=== PATIENT | female | born 1955 | race Caucasian/White ===

== ENCOUNTER → 2016-02-22 | Outpatient (CLI) | payer BC | LOC: GMAL 17:33 | PROVIDERS: ATTEND Family Medicine | DX: L03.311 Cellulitis of abdominal wall (principal) ==

== ENCOUNTER 2018-04-01 17:18 | Emergency (ER) | payer SELFPAY ==
[2018-04-01] MEDS ORDERED: IPRATROPIUM/ALBUTEROL 3 ML VIAL NEB ONE (17:36)
[2018-04-01] MEDS ORDERED: IBUPROFEN 200 MG TAB PO ONE (17:37)
[2018-04-01 17:42] VITALS: TEMP 99.6
[2018-04-01] MEDS ORDERED: OSELTAMIVIR 75 MG CAP PO ONE (18:07)
[2018-04-01] MEDS ORDERED: predniSONE 20 MG TAB PO ONE (18:08)
--- NOTE | 2018-04-01 18:23 | RAD ---
EXAM DESCRIPTION: Chest,2 Views CLINICAL HISTORY:63 years Female, cough, fever Comparison: None FINDINGS: No focal lung consolidation. No pleural effusion. No pneumothorax. Cardiac and mediastinal silhouette is unremarkable. No acute osseous abnormality. Soft tissues are unremarkable. IMPRESSION: No acute findings. No focal lung consolidation. Electronically signed by: Rick Vo MD 04/01/2018 6:19 PM [facility]
[2018-04-01] MEDS ORDERED: AMOXICILLIN & POT CLAVULANATE 875 MG TAB PO ONE (18:28)
--- NOTE | 2018-04-01 18:31 | ED.PDOC ---
History of Present Illness - General Chief Complaint: Respiratory Problem Stated Complaint: Pt complains of headache, productive cough, SOB Time Seen by Provider: 04/01/18 17:33 Source: patient Exam Limitations: no limitations - History of Present Illness Initial Comments: the patient is a 63-year-old female presenting to emergency room secondary to a weeks worth of symptoms of cough and some mild shortness of breath. She does smoke. She does have wheezing and obviously has since the period she presents with her with similar symptoms of a shorter duratio n. She did have some diarrhea earlier in the week but that has resolved. No real abdominal pain. No chest pain. She does have a cough, does have a sore throat as well as a mild headache and some generalized body aches as well. Timing/Duration: 1 week Severity: moderate Improving Factors: nothing Worsening Factors: nothing Associated Symptoms: cough, fever/chills, headaches, loss of appetite, malaise Allergies/Adverse Reactions: Allergies Acetaminophen Allergy (Verified 03/06/14 11:24) Clarithromycin [From Biaxin] Allergy (Verified 03/06/14 11:24) Dextromethorphan [From Night Time Cold Formula] Allergy (Verified 03/06/14 11:24) Doxylamine [From Night Time Cold Formula] Allergy (Verified 03/06/14 11:24) Ephedrine [From Night Time Cold Formula] Allergy (Verified 03/06/14 11:24) Fexofenadine [From Rosaura-D] Allergy (Verified 03/06/14 11:24) Gemfibrozil Allergy (Verified 03/06/14 11:24) Methotrexate Allergy (Verified 03/06/14 11:24) Pseudoephedrine [From Rosaura-D] Allergy (Verified 03/06/14 11:24) Rosuvastatin [From Crestor] Allergy (Verified 03/06/14 11:24) Home Medications: Ambulatory Orders Glipizide 5 mg PO DAILY 03/06/14 Lantus 0 units SC DAILY 03/06/14 Plaqenil 200 mg .ROUTE DAILY 03/06/14 Pregabalin [Lyrica] 75 mg PO BID 03/06/14 Sitagliptin Phosphate [Januvia] 100 mg PO DAILY 03/06/14 Amoxicillin & Pot Clavulanate [Augmentin Tab] 875 mg PO BID #10 tab 04/01/18 Oseltamivir Capsule [Tamiflu] 75 mg PO BID 5 Days #10 capsule 04/01/18 predniSONE [Prednisone] 20 mg PO DAILY #3 tab 04/01/18 Review of Systems - Review of Systems Constitutional: States: chills, diaphoresis, fever, malaise EENTM: States: nose congestion, throat pain Respiratory: States: cough Cardiology: States: no symptoms reported Gastrointestinal/Abdominal: States: no symptoms reported, diarrhea - has resolved at this point Genitourinary: States: no symptoms reported Musculoskeletal: States: see HPI - generalized body aches Skin: States: no symptoms reported Neurological: States: headache Endocrine: States: no symptoms reported All other Systems: No Change from Baseline Past Medical History (General) - Patient Medical History Hx Seizures: No Hx Stroke: No Hx Dementia: No Hx Asthma: No Hx of COPD: No Hx Cardiac Disorders: No Hx Congestive Heart Failure: No Hx Pacemaker: No Hx Hypertension: No Hx Thyroid Disease: No Hx Diabetes: Yes Hx Gastroesophageal Reflux: No Hx Renal Disease: No Hx of HIV: No Hx MRSA: No Surgical History: other - Vaccination History Hx Tetanus, Diphtheria Vaccination: No Hx Influenza Vaccination: No Hx Pneumococcal Vaccination: No Immunizations Up to Date: - Unknown - Social History Hx Tobacco Use: Yes Cigarettes Packs Per Day: 1 Hx Alcohol Use: No Hx Substance Use: No Hx Substance Use Treatment: No Hx Depression: No - Female History Patient is a Female of Child Bearing Age (10 -59 yrs old): No Family Medical History - Family History Mother Family History: Unknown Living Status: Unknown Physical Exam - Physical Exam General Appearance: Alert, No apparent distress, Unkempt Eye Exam: bilateral normal Ears, Nose, Throat: hearing grossly normal, nasal congestion, pharyngeal erythema Neck: full range of motion, supple, normal inspection Respiratory: no respiratory distress, no accessory muscle use, wheezing Cardiovascular/Chest: normal peripheral pulses, no edema, tachycardia Peripheral Pulses: radial,right: 2+, radial,left: 2+ Gastrointestinal/Abdominal: non tender, soft Rectal Exam: deferred Back Exam: no CVA tenderness, no vertebral tenderness Extremity: normal range of motion, non-tender, normal inspection, no pedal edema, normal capillary refill 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 She is not hypoxic. She received a breathing treatment, dose of prednisone, a dose of Tamiflu and a dose of Augmentin. Chest x-ray shows no focal infiltrate. The patient is going to be written for the treatment course of Tamiflu as well as 5 days of Augmentin and 3 days of oral prednisone. She needs to not smoke during this time. Motrin can be used for symptom control as well. Keep well-hydrated. ER warnings were given. keep follow-up with primary care doctor late this week or early next week. Departure - Departure Clinical Impression: Influenza, Acute exacerbation of COPD with asthma Disposition: Discharge to Home or Self Care Condition: Fair Departure Forms: ED Discharge - Pt. Copy, Patient Portal Self Enrollment Instructions: Flu, Adult (DC), Exacerbation of COPD Diet: regular diet Activity: increase activity as tolerated Referrals: Olivier Solorzano III, MD [Primary Care Provider] - 1-5 Days Prescriptions: Amoxicillin & Pot Clavulanate [Augmentin Tab] 875 mg PO BID #10 tab Oseltamivir Capsule [Tamiflu] 75 mg PO BID 5 Days #10 capsule predniSONE [Prednisone] 20 mg PO DAILY #3 tab Home Medications: Ambulatory Orders Glipizide 5 mg PO DAILY 03/06/14 Lantus 0 units SC DAILY 03/06/14 Plaqenil 200 mg .ROUTE DAILY 03/06/14 Pregabalin [Lyrica] 75 mg PO BID 03/06/14 Sitagliptin Phosphate [Januvia] 100 mg PO DAILY 03/06/14 Amoxicillin & Pot Clavulanate [Augmentin Tab] 875 mg PO BID #10 tab 04/01/18 Oseltamivir Capsule [Tamiflu] 75 mg PO BID 5 Days #10 capsule 04/01/18 predniSONE [Prednisone] 20 mg PO DAILY #3 tab 04/01/18 Additional Instructions: the patient is a 63-year-old female presenting with what appears to be a COPD exacerbation complicated by influenza. She is not hypoxic. She received a breathing treatment, dose of prednisone, a dose of Tamiflu and a dose of Augmentin. Chest x-ray shows no focal infiltrate. The patient is going to be written for the treatment course of Tamiflu as well as 5 days of Augmentin and 3 days of oral prednisone. She needs to not smoke during this time. Motrin can be used for symptom control as well. Keep well-hydrated. ER warnings were given. keep follow-up with primary care doctor late this week or early next week.
[2018-04-01 18:45] VITALS: O2SAT 96
[2018-04-01 19:03] VITALS: BP 106/80
== END 2018-04-01 19:04 | disposition home or self-care (01) ==
LOC: ER 17:18
DX: J11.1 Influenza due to unidentified influenza virus with other respiratory manifestations (principal); J44.1 Chronic obstructive pulmonary disease with (acute) exacerbation; E11.9 Type 2 diabetes mellitus without complications; F17.210 Nicotine dependence, cigarettes, uncomplicated; Z79.4 Long term (current) use of insulin; Z79.899 Other long term (current) drug therapy; Z88.8 Allergy status to other drugs, medicaments and biological substances; Z88.1 Allergy status to other antibiotic agents; Z88.6 Allergy status to analgesic agent
CPT/HCPCS: 71046; 87502; 94640; J7512; J7620